=== PATIENT | female | born 1950 | race Caucasian/White ===

== ENCOUNTER 2020-08-21 15:01 | Outpatient (CLI) | payer MEDICARE, BC, SELFPAY ==
--- NOTE | 2020-08-21 15:11 | CT_ITS ---
WS: [id number] CTA OF THE CHEST WITH PULMONARY EMBOLISM PROTOCOL TECHNIQUE: High-resolution contrast enhanced CTA of the chest with coronal and sagittal reformatted i tristans with pulmonary embolism protocol. MIP images are also reviewed. CLINICAL INFORMATION: POST COVID, DYSPNEA, HEMOPTYPSIS COMPARISON: DLP: 657.[address] scans at [facility] use at least one of these dose optimization techniques: automat ed exposure control; mA and/or kV adjustment per patient size (includes targeted exams where dose is matched to clinical indication); or iterative reconstruction. FINDINGS: Some images degraded by breathing motion artifact Proximal main pulmonary arteries are normal. Segmental and subsegmental pulmonary arteries appear pat ent where visualized. Images degraded by patient motion. No evidence for pulmonary embolus. Normal caliber thoracic aorta. Prominent AP window and anterior mediastinal lymph nodes nonspecific b ut may be reactive. Largest anterior mediastinal lymph node measures 9 mm. Largest AP window lymph no de measures 10 mm. No axillary lymphadenopathy. Right thyroid mass measuring 4.3 x 3.1 CM. Mass effec t on the trachea at the thoracic inlet. This can be followed up with ultrasound. This is similar in a ppearance to 2019. Diffuse hazy groundglass infiltrates throughout both lungs compatible with viral pneumonitis. Pulmona ry nodule in the left upper lobe measuring 8 mm unchanged since 2019. No axillary lymphadenopathy. Adrenal glands are normal. Gallbladder is contracted. Diffuse fatty infiltration liver. A few low-att enuation lesions in the right hepatic lobe too small to characterize likely hepatic cysts. These are unchanged since 2019. CT/CT angio chest PE protcl [id number] IMPRESSION: 1. No evidence for pulmonary embolus. 2. Diffuse hazy groundglass infiltrates throughout both lungs compatible with viral pneumonitis. No focal consolidation. 3. Stable left upper lobe pulmonary nodule measuring 8 mm unchanged since 2019 4. Prominent mediastinal and AP window lymph nodes nonspecific but likely reac tive. 5. Large right thyroid mass is similar in appearance to 2019 with mass effect on the trachea at the thoracic inlet described above. This can be followed up w [facility] ultrasound.
[2020-08-21 15:32] LABS: Blood Urea Nitrogen 21 mg/dL (8-23)
[2020-08-21] MEDS: iohexol 350 mg/mL 100 mL Btl IV (15:43)
== END 2020-08-21 15:02 | disposition home or self-care (01) ==
PROVIDERS: Family Provider Physician Assistant; PCP Physician Assistant; Visit Provider Physician Assistant
DX: R06.00 Dyspnea, unspecified (principal); R04.2 Hemoptysis; E07.89 Other specified disorders of thyroid; R91.8 Other nonspecific abnormal finding of lung field
CPT/HCPCS: 71275; 82565; 84520; Q9967

== ENCOUNTER 2020-11-23 15:01 | Outpatient (CLI) | payer MEDICARE, BC, SELFPAY ==
--- NOTE | 2020-11-23 15:04 | MM_ITS ---
WS: [id number] BILATERAL DIGITAL SCREENING MAMMOGRAM WITH CAD CLINICAL INFORMATION: SCREENING HISTORY: Screening mammogram. No current complaints. COMPARISON: TECHNIQUE: Bilateral CC and MLO. FINDINGS: The breast are composed of extremely dense tissue, which can limit the detection of small underlying mass lesions. No suspicious focal mass, asymmetry, calcifications, or architectural distortion. No ev idence of malignancy. Punctate and lucent centered calcifications. MM/[place] [id number] IMPRESSION: BI-RADS: 2-Benign FOLLOW UP: 1 Year Follow-up Recommend return to annual screening mammography.
== END 2020-11-23 15:02 | disposition home or self-care (01) ==
PROVIDERS: PCP Physician Assistant; Visit Provider Physician Assistant
DX: Z12.31 Encounter for screening mammogram for malignant neoplasm of breast (principal)
CPT/HCPCS: 77067

== ENCOUNTER 2021-09-17 08:55 | Outpatient (CLI) | payer MEDICARE, BC, SELFPAY ==
[2021-09-17 09:25] VITALS: BMI 31.8
--- NOTE | 2021-09-17 09:40 | SUR.PREOP ---
PRE STRESS NOTE Patient arrived walking with a cane. Discussed the physical demands of the treadmill and the fact that gait is unsteady and requires the use of a cane. Also noted to be on calcium channel blockade within the last 24 hours. MD notified of the the findings. Ver[facility] (covering all week for Rojelio Goodwin). Patient aware and agreeable with the change.
--- NOTE | 2021-09-17 09:58 | ECG_ITS ---
[facility] Test Date: 2021-09-17 Pat Name: Anne Cox Department: Room: Gender: Female Inspector Firearms: : 1950 Requested By: Nallely Kathleen Order Number: [id number] Tracey MD: RJ ASIF Interpretive Statements NAME OF STUDY: LEXISCAN SESTAMIBI STRESS TEST INDICATION: Chest Pain NOTE: Please note that this is the electrocardiogram portion of the Lexiscan/Sestamibi stress test. The perfusion scan will be documented separately. DATA: Baseline heart rate was 59 beats per minute. Baseline blood pressure was 146/73 millimeters of mercury. Target heart rate was 147. Maximum heart rate achieved was 111. which was 75 % of the predicted target heart rate. Maximum blood pressure was 148/74 millimeters of mercury. The reason for ending the test was completion of the protocol. The patient did not experience any symptoms. ELECTROCARDIOGRAM: BASELINE: Sinus rhythm. Normal axis. Anterior lead T wave inversion at the baseline EXERCISE: After Lexiscan injection, no ST-T changes suggestive of ischemic noted. No arrhythmia noted. CONCLUSION: Please note due to baseline abnormality of the EKG specificity and sensitivity of the EKG portion of LexiScan MIBI stress test will be low 1. EKG not suggestive of ischemia 2. Lexiscan injection unremarkable. 3. Perfusion scan will be documented separately. Electronically Signed On 09-18-2021 17:12:00 LAST SORTER by RJ ASIF [email or web address]
--- NOTE | 2021-09-17 09:58 | NMCV_ITS ---
NM chelsie perf SPECT r/s* [id number] Anne Cox Age: 71 Gender: F : 1950 Exam Date: 09/17/2021 09:58 Ordering Phys: Nallely Goodwin Technologist: ADELAIDE Whitten Exam Location: [facility] Indications: CHEST PAIN STRESS TEST Please see separate stress test report in [facility] for full findings IMAGE PROTOCOL Rest/Stress 1 Lexiscan Day Radiopharmaceutical Dose (mCi) Administration Site Administered by Rest: Tc-99m 10.7 IV ADELAIDE Whitten Sestamibi Stress:Tc-99m 32.3 IV ADELAIDE De Dios Sestamibi Rest: 17-Sep-2021 60 Discovery 630 Stress: 17-Sep-2021 30 Discovery 630 0.4mg Lexiscan. Images obtained in supine and prone position. SPECT RESULTS Technical Quality: Excellent Raw Data Analysis: Normal Image Corrections: No attenuation or motion correction applied Summed Stress Score: 4 Summed Rest Score: 1 Summed Difference Score: 4 PERFUSION FINDINGS SPECT images demonstrate homogeneous tracer distribution throughout the myocardium. FUNCTIONAL RESULTS (calculated via Gated SPECT) Stress Image LV EF (%): 87 Stress EDV (mL):47 TID: 1.05 Stress ESV (mL):6 Rest Image LV EF (%): 87 FUNCTIONAL FINDINGS: There is normal left ventricular systolic function. IMPRESSIONS Myocardial perfusion imaging is normal. EKG segment will be documented separately. Oliver Frankel MD (Electronically Signed) Final Date: 18 September 2021 10:32 S
[2021-09-17] MEDS: regadenoson 0.4 Mg/5 ml Syringe IVP (11:30)
[2021-09-17 11:45] VITALS: BP 121/72; PULSE 85
== END 2021-09-17 08:56 | disposition home or self-care (01) ==
PROVIDERS: PCP Physician Assistant; Visit Provider Physician Assistant
DX: R07.9 Chest pain, unspecified (principal)
CPT/HCPCS: 78452; 93017; A9500; J2785

== ENCOUNTER 2022-06-26 13:26 | Outpatient (CLI) | payer MEDICARE, BC, SELFPAY ==
--- NOTE | 2022-06-26 13:40 | XR_ITS ---
WS: [id number] DEXA (DUAL ENERGY X-RAY ABSORPTIOMETRY) Bone mineral density was performed using a Molecular Imaging machine. HISTORY: OSTEOPOROSIS COMPARISON: None available. Lumbar spine BMD (L1-L4): 1.122 g/cm2 T score: -0.5 Z score: 0.7 Left forearm BMD: 0.800 g/cm2. T score: -0.9 Z score: 1.3 XR/XR DEXA axial skeleton* [id number] IMPRESSION: NORMAL BONE MINERAL DENSITY based upon the WHO classification for females.
== END 2022-06-26 13:27 | disposition home or self-care (01) ==
LOC: RAD 13:28
PROVIDERS: PCP Physician Assistant; Visit Provider Physician Assistant
DX: M81.0 Age-related osteoporosis without current pathological fracture (principal)
CPT/HCPCS: 77080

== ENCOUNTER 2024-05-27 09:52 | Outpatient (CLI) | payer MEDICARE, BC, SELFPAY ==
--- NOTE | 2024-05-27 10:07 | MM_ITS ---
WS: [id number] Bilateral screening 3D tomosynthesis digital mammogram, 05/27/2024 Clinical Data: SCREENING Comparison: 11/23/2020, 03/26/2019, 06/10/2017, 03/30/2013, 02/09/2013, 08/03/2012, 04/22/2012, 04/16/2012, , 02/08/2008. Findings: The breast parenchymal pattern shows extreme density. No spiculated masses or clustered calcification s are seen. There are no secondary signs of carcinoma. MM/[place] [id number] Impression: 1. Negative bilateral mammogram unchanged. 2. Recommend annual screening mammograms. BIRADS: 1-Negative FOLLOW UP: 1 Year Follow-up The CAD fruit checker was used.
== END 2024-05-27 09:53 | disposition home or self-care (01) ==
PROVIDERS: PCP Physician Assistant; Visit Provider Physician Assistant
DX: Z12.31 Encounter for screening mammogram for malignant neoplasm of breast (principal)
CPT/HCPCS: 77063; 77067

== ENCOUNTER 2024-08-09 08:00 | Outpatient (CLI) | payer MEDICARE, BC, SELFPAY ==
--- NOTE | 2024-08-09 08:07 | CT_ITS ---
WS: [id number] CT NECK WITH CONTRAST HISTORY: THYROID NODULE TECHNIQUE: Contiguous 2 mm axial images are performed through the neck with intravenous contrast. Sag ittal and coronal reformats are also submitted. All CT scans at [facility] use at least one o f these dose optimization techniques: automated exposure control; mA and/or kV adjustment per patient size (includes targeted exams where dose is matched to clinical indication); or iterative reconstruc tion. CONTRAST: CONTRAST: Omnipaque 350; 100 mL IV. DLP: 194.85 mGy.cm COMPARISON: 03/19/2018, 07/30/2019 Reidentified is a very large lobulated heterogeneous enhancing nodule filling majority of the RIGHT t hyroid. Heterogeneous mass extends over a length of 5.9 cm x 3.3 cm anterior posterior and transverse ly 4.1 cm with partial extension into the isthmus. There is mass effect upon the trachea and midline shift. Increasing cystic and fluid component. There is now a low-attenuation nodule in a small caliber LEFT thyroid measuring 1.7 x 1.5 x 1.7 cm. Oropharynx and nasopharynx are negative. No tongue base abnormality. No adenopathy. No significant at herosclerotic disease within the carotid arteries. Lung apices are clear. Visualized paranasal sinuses and mastoid air cells are normal. Lung apices are clear. CT/CT neck w con* [id number] IMPRESSION: 1. Enlarged multinodular heterogeneous thyroid measures 5.9 x 3.3 x 4.1 cm. Si milar in size to the prior study from 07/30/2019. Increasing cystic component. P robably representing a multinodular goiter. 2. Continued mass effect with deviation and displacement of the trachea to the LEFT. 3. New small LEFT thyroid nodule measuring 1.7 x 1.5 x 1.7 cm. 4. Thyroid could be further evaluated by ultrasound.
[2024-08-09 09:16] LABS: Blood Urea Nitrogen 14 mg/dL (8-23)
[2024-08-09] MEDS: iohexol 350 mg/mL 500 mL Btl (per mL) IV (09:39)
[2024-08-09] MEDS: iohexol 350 mg/mL 500 mL Btl (per mL) PO (09:39)
== END 2024-08-09 08:03 | disposition home or self-care (01) ==
PROVIDERS: Radiology Neuroradiology; PCP Physician Assistant; Visit Provider Physician Assistant
DX: E04.2 Nontoxic multinodular goiter (principal)
CPT/HCPCS: 70491; 82565; 84520

== ENCOUNTER → 2025-03-11 09:04 | Outpatient (BNVA) | payer MEDICARE, OTHER, SELFPAY | PROVIDERS: PCP Physician Assistant; Visit Provider Internal Medicine | DX: E04.1 Nontoxic single thyroid nodule (principal); R79.89 Other specified abnormal findings of blood chemistry | CPT/HCPCS: 99204 ==

== ENCOUNTER 2025-03-15 12:50 | Outpatient (CLI) | payer MEDICARE, OTHER, SELFPAY | END 2025-03-15 12:51 | disposition home or self-care (01) | PROVIDERS: PCP Physician Assistant; Visit Provider Internal Medicine | DX: E04.1 Nontoxic single thyroid nodule (principal) | CPT/HCPCS: 36415; 83516; 84432; 86376; 86800 ==

== ENCOUNTER 2025-04-01 08:55 | Outpatient (CLI) | payer MEDICARE, OTHER, SELFPAY ==
[2025-04-01 09:52] LABS: Thyroid Stimulating Hormone 0.02 uIU/mL (0.27-4.20)
[2025-04-02 04:54] LABS: T3 Total 131 ng/dL (76-181)
== END 2025-04-01 08:56 | disposition home or self-care (01) ==
LOC: LAB 08:58
PROVIDERS: PCP Physician Assistant; Visit Provider Internal Medicine
DX: E04.1 Nontoxic single thyroid nodule (principal)
CPT/HCPCS: 36415; 84439; 84443; 84480

== ENCOUNTER → 2025-06-10 12:01 | Outpatient (BNVA) | payer MEDICARE, OTHER, SELFPAY | PROVIDERS: PCP Physician Assistant; Visit Provider Internal Medicine | DX: E04.1 Nontoxic single thyroid nodule (principal); R79.89 Other specified abnormal findings of blood chemistry | CPT/HCPCS: 36415; 84439; 84443; 84480 ==